=== PATIENT | female | born 1975 | race Hispanic/Latino ===

== ENCOUNTER 2025-04-24 00:53 | Emergency (ER) | payer SELFPAY ==
[~2025-04-24] VITALS: Ht 154.9 cm; Wt 81.6 kg
--- NOTE | 2025-04-24 01:24 | EKG ---
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
[2025-04-24 01:26] LABS: IMMATURE GRANULOCYTE ABSOLUTE 0.05 K/uL (0-1); NUCLEATED RED BLOOD CELLS 0.0 % (0.0-0.19); PLATELET COUNT (AUTO) 345 K/uL (130-400); RED BLOOD CELL COUNT(AUTO) 4.62 MIL/uL (4.00-5.50); RED CELL DISTRIBUTION WIDTH 13.6 % (11.0-15.5); WHITE BLOOD COUNT (AUTO) 10.6 K/uL (4.8-10.8)
[2025-04-24 01:34] LABS: CREATININE 0.8 mg/dL (0.5-1.0); GLOMERULAR FILTR. RATE CALC 89 mL/min (>90); GLUCOSE,RANDOM 132 mg/dL (70-105); SODIUM SERUM 141 mmol/L (136-145); UREA NITROGEN, BLOOD 8 mg/dL (7-18)
[2025-04-24] MEDS: 0.9%NACL 1000ML 1,000 ML IV ONE (01:34)
[2025-04-24 01:42] LABS: ALCOHOL, BLOOD < 3 mg/dL (0-10)
--- NOTE | 2025-04-24 02:40 | ERN ---
ED Note History of Present Illness Stated Complaint: SENT IN FOR EMOTIONAL DISTRESS Chief Complaint: Other Problems Time Seen by MD: 00:56 Dictation: This is a 50-year-old female who is overweight apparently has been crying since her father yesterday. Got concerned about her ongoing emotional distress and they sent her via EMS to ER for evaluation The daughter indicated that ever since her father she started complaining of chest tightness feeling like fainting and leg pains. She does have a history of arthritis but she does not know the details and patient is on Rinvoq. She saw her primary care physician who also started her on rosuvastatin. Referred her to cell repairer for for a baseline echocardiogram patient denied any diabetes or hypertension she is currently not on any medications for hypertension Patient has been crying incessantly and was complaining that she could faint. Temperature 98.1 pulse 153 respirations 20 blood pressure 148/99 with a pulse oximetry of 97%. Heart rate by the time she came to the ED was 77-80 Chronic medical problems include asthma, hypertension, hypercholesterolemia Allergies: Coded Allergies: No Known Allergies (Unverified Allergy, Unknown, 04/24/25) Past Medical History Past Medical History: Asthma, High Cholesterol, Heart Disease, Hypertension Surgical History: None Family History: Negative Social History: Negative History: Not Applicable RN Note Reviewed/Agreed w/PFSH: Yes Review of System Dictation Constitutional: Negative for fever,chills, and weight loss Eyes: Negative for injury, pain,redness, and discharge ENT: Negative for injury,pain or swelling Cardiovascular: Positive for chest pain, palpitations, denied and edema Respiratory: Positive for shortness of breath, cough, and wheezing, Abdomen/GI: Negative for abdominal pain, nausea, vomiting, diarrhea, and constipation Back: Negative for injury and pain : Negative for injury, bleeding and discharge MS/Extremity: Negative for injury and deformity Skin: Negative for rash, and discoloration Neuro: Negative for headache, weakness, numbness, tingling, and seizure Psych: Negative for suicide ideation, homicidal ideation, and hallucinations Initial Vital Sign VS Vital Signs Date Time Temp Pulse Resp B/P (MAP) Pulse Ox O2 Delivery O2 Flow Rate FiO2 04/24/25 00:56 98.1 153 20 148/99 97 0 Physical Exam Dictation General: awake, alert, NAD overweight female Head/Face: Normocephalic, atraumatic Eyes: PERRL, EOMI, vision at baseline ENT: oral cavity clear, TMs clear, no signs of infection Neck: Trachea midline, supple, no nuchal rigidity Cardiovascular: RRR, normal S1/S2, No MRGs, no JVD Respiratory: CTAB, no respiratory distress, No rales or wheezes Abdomen: Soft, non-tender, non-distended, normal bowel sounds, no guarding or rebound. Skin: Warm, dry, normal turgor, no rash MS/Extremity: Pulses equal, no cyanosis, neurovascular intact, FROM Neuro: COAx4, GCS 15, strength 5/5, CN 2-12 intact, normal cerebellar exam, normal gait, Psych: Normal behavior, mood, and affect normal Extremities-trace edema without any palpable cords, Homans sign is negative Results (Laboratory/Radiology) Laboratory/Radiology Laboratory Tests Test 04/24/25 01:17 04/24/25 02:58 White Blood Count 10.6 K/uL (4.8-10.8) Red Blood Count 4.62 MIL/uL (4.00-5.50) Hemoglobin 14.3 g/dL (12.0-16.0) Hematocrit 42.1 % (36-48) Mean Corpuscular Volume 91.1 fL (79-99) Mean Corpuscular Hemoglobin 31.0 pg (27.0-33.0) Mean Corpuscular Hemoglobin Concent 34.0 g/dL (32.0-36.0) Red Cell Distribution Width 13.6 % (11.0-15.5) Platelet Count 345 K/uL (130-400) Mean Platelet Volume 10.6 fL (7.5-10.5) H Immature Granulocyte % (Auto) 0.5 % (0-1) Neutrophils (%) (Auto) 67.7 % (40.0-77.0) Lymphocytes (%) (Auto) 22.3 % (21.0-51.0) Monocytes (%) (Auto) 7.8 % (3.0-13.0) Eosinophils (%) (Auto) 1.4 % (0.0-8.0) Basophils (%) (Auto) 0.3 % (0.0-5.0) Neutrophils # (Auto) 7.2 K/uL (1.8-7.7) Lymphocytes # (Auto) 2.4 K/uL (1.0-4.8) Monocytes # (Auto) 0.8 K/uL (0.1-1.0) Eosinophils # (Auto) 0.15 K/uL (0.00-0.70) Basophils # (Auto) 0.03 K/uL (0.00-0.20) Absolute Immature Granulocyte (auto 0.05 K/uL (0-1) Nucleated Red Blood Cells 0.0 % (0.0-0.19) Sodium Level 141 mmol/L (136-145) Potassium Level 3.4 mmol/L (3.5-5.1) L Chloride Level 106 mmol/L (101-111) Carbon Dioxide Level 28 mmol/L (21-32) Blood Urea Nitrogen 8 mg/dL (7-18) Creatinine 0.8 mg/dL (0.5-1.0) Glomerular Filtration Rate Calc 89 mL/min (>90) Random Glucose 132 mg/dL (70-105) H Total Calcium 8.6 mg/dL (8.5-10.1) Salicylates Level < 2.8 mg/dL (2.8-20.0) L Acetaminophen Level < 1 mcg/mL (10-30) L Serum Alcohol < 3 mg/dL (0-10) Urine Color LIGHT-YELLOW (YELLOW) Urine Appearance CLOUDY (CLEAR) H Urine pH 6.5 (5.0-8.0) Urine Specific [place] 1.014 (1.001-1.031) Urine Protein NEGATIVE mg/dL (NEGATIVE) Urine Glucose (UA) NEGATIVE mg/dL (NEGATIVE) Urine Ketones NEGATIVE mg/dL (NEGATIVE) Urine Occult Blood NEGATIVE (NEGATIVE) Urine Nitrate NEGATIVE (NEGATIVE) Urine Bilirubin NEGATIVE mg/dL (NEGATIVE) Urine Urobilinogen 2.0 mg/dL (0.2-1.0) H Urine Leukocyte Esterase NEGATIVE Ruf[place]/uL Urine RBC 2-5 /HPF (0-1) H Urine WBC 0-1 /HPF (0-1) Urine Squamous Epithelial Cells MANY /HPF (0-2) Urine Bacteria RARE /HPF (None Seen) Urine Opiates Screen NEGATIVE (NEGATIVE) Urine Barbiturates Screen NEGATIVE (NEGATIVE) Urine Phencyclidine Screen NEGATIVE (NEGATIVE) Urine Amphetamines Screen NEGATIVE (NEGATIVE) Urine Benzodiazepines Screen NEGATIVE (NEGATIVE) Urine Cocaine Screen NEGATIVE (NEGATIVE) Urine Marijuana (THC) Screen NEGATIVE (NEGATIVE) Labs Reviewed?: Yes EKG Comment: 12 lead EKG done on 04/24/2025 at 1:21 a.m. showed a heart rate of 86, OK interval 129, QRS 75, QT/QTC 385/460 Impression normal sinus rhythm with nonspecific changes poor progression of the R-waves. Overall slightly low voltage. EKG rhythm strip also shows a normal sinus rhythm with no acute STT wave emmie nges. Interpreted by ER MD Dr. Glass ED Course ED Course Orders Procedure Category Date Status Time Cbc With Differential LAB 04/24/25 Complete 01:07 Alcohol, Blood LAB 04/24/25 Complete 01:07 Salicylate LAB 04/24/25 Complete 01:07 Acetaminophen LAB 04/24/25 Complete 01:07 Urinalysis Profile LAB 04/24/25 Complete 01:07 Basic Metabolic Panel LAB 04/24/25 Complete 01:07 12 Lead Ekg Tracing- EKG 04/24/25 Complete Technical 01:07 0.9%Nacl 1000ml (Ns PHA 04/24/25 In Process 1000ml) 01:30 Drug Screen Urine LAB 04/24/25 Complete 01:07 Ketorolac PHA 04/24/25 Complete Tromethamine 30mg/Ml 02:30 Alprazolam 0.5mg PHA 04/24/25 Complete (Xanax 0.5mg) 03:00 Ondansetron 4mg Inj PHA 04/24/25 Complete (Zofran 4mg Inj) 03:30 Current Medications Medications (Trade) Dose Ordered Sig/Julio Route PRN Reason Start Time Stop Time Status Last Admin Dose Admin Alprazolam (XANax 0.5MG) 0.5 mg ONCE ONCE PO 04/24/25 03:00 04/24/25 03:01 DC 04/24/25 03:08 Ketorolac Tromethamine (toRADol) 30 mg ONCE ONCE IVP 04/24/25 02:30 04/24/25 02:33 DC 04/24/25 02:48 Ondansetron HCl (zoFRAN 4MG INJ) 4 mg ONCE ONCE IVP 04/24/25 03:30 04/24/25 03:31 DC 04/24/25 03:10 Sodium Chloride 1,000 ml @ 125 mls/hr ONCE ONCE IV 04/24/25 01:30 04/24/25 09:29 04/24/25 01:34 Vital Signs Date Time Temp Pulse Resp B/P (MAP) Pulse Ox O2 Delivery O2 Flow Rate FiO2 04/24/25 00:56 98.1 153 20 148/99 97 0 HEART Score Response (Comments) Value History: Low suspicion (0) 0 EKG: Normal 0 Age: 45-65yrs (+1) 1 Risk Factors: 1-2 risk factors (+1) 1 Initial Troponin: Normal limit (0) 0 HEART Score Risk: Low Risk for MACE (1-3) Total 2 Medical Decision Making MDM Differential diagnosis: Acute grief reaction, anxiety depression with stressors in life, alcohol intoxication/withdrawal, recreational drug abuse worsening this psychiatric disorder This is a 50-year-old female who is overweight apparently has been crying since her father yesterday. Got concerned about her ongoing emotional distress and they sent her via EMS to ER for evaluation The daughter indicated that ever since her father she started complaining of chest tightness feeling like fainting and leg pains. She does have a history of arthritis but she does not know the details and patient is on Rinvoq. She saw her primary care physician who also started her on rosuvastatin. Referred her to cell repairer for for a baseline echocardiogram patient denied any diabetes or hypertension she is currently not on any medications for hypertension Patient has been crying incessantly and was complaining that she could faint. Temperature 98.1 pulse 153 respirations 20 blood pressure 148/99 with a pulse oximetry of 97%. Heart rate by the time she came to the ED was 77-80 Chronic medical problems include asthma, hypertension, hypercholesterolemia 4:00 a.m. labs reviewed CBC is with a normal limits BNP 7 showed a potassium of 3.4 UDS negative urinalysis is unremarkable. Twelve lead EKGs normal I updated the patient and her daughter on all the available tests and gave her gentle hydration as well as an anxiolytic. Patient felt extremely relaxed and relieved and she would like to be discharged to home Rationale: Tests considered and ordered secondary to shared decision making include: Labs, urinalysis, UDS, EKG Previous outside records reviewed: Old ER visits. Risk of complication and/or morbidity or mortality of patient management: None Medications-Per medication reconciliation Need for hospitalization: Patient does not meet criteria for hospitalization. Need for emergency major/minor surgery: No There are no social concerns with this patient. Prescription drug management Prescriptions will include symptomatic care Patient's prior external medical records from other ER visits were reviewed by me as indicated. Prior testing and results from previous visits were reviewed. Prior tests were taken into account with medical decision making and resource utilization, independent historian/historians were used to obtain complete medical history. I independently interpreted the test that were performed, results were reviewed by me and considered findings on radiology if ordered. Medical management and examination interpretation discussions were had by me with other qualified healthcare professionals as indicated for the patient's care. Rationale: Tests considered and ordered secondary to shared decision making include: Labs, EKG and chest x-ray Previous outside records reviewed: Old ER visits. Risk of complication and/or morbidity or mortality of patient management: None Medications-Per medication reconciliation Need for hospitalization: Patient does not meet criteria for hospitalization. Need for emergency major/minor surgery: No There are no social concerns with this patient. Prescription drug management Prescriptions will include symptomatic care Patient's prior external medical records from other ER visits were reviewed by me as indicated. Prior testing and results from previous visits were reviewed. Prior tests were taken into account with medical decision making and resource utilization, independent historian/historians were used to obtain complete medical history. I independently interpreted the test that were performed, results were reviewed by me and considered findings on radiology if ordered. Medical management and examination interpretation discussions were had by me with other qualified healthcare professionals as indicated for the patient's care. Problem List Problem List: (1) Grief reaction (2) Stress reaction, acute, predominant emotional DX & DISP Disposition: Discharge Departure Impression: Primary Impression: Grief reaction Additional Impression: Stress reaction, acute, predominant emotional Condition: Stable Additional Instructions: Patient and the caregiver have been informed of all the diagnostic tests and the imaging conducted during the today's visit to the emergency room and has verbalized understanding of the results I have personally reviewed and interpreted all diagnostic exams performed here in the ER today as well as the vital signs documented by the nursing staff. The patient is now being dischar ged to home and should follow up with the primary care physician or the specialist as directed by the ER staff. 1 schedule a follow-up appointment; call your primary care physician's office on the next business day to set up a follow-up appointment. 2. Monitor symptoms; if your symptoms worsen return to the emergency room immediately. 3. Return to school/work; you may return to work or school in 2 days or as directed by your primary care physician. 4. Manage pain and fever; take [id number] Tylenol or Advil for pain or fever if there are no contraindications follow the recommended dosage instructions. 5. Stay well hydrated; drink plenty of oral fluids to stay hydrated. 6. Take prescribed medications; take any medications prescribed in the emergency room as directed bring them with you to your primary care physician visit for possible adjustments. 7. Complete medication course; finish the entire course of medication as prescribed even if you start feeling better. Do not have any leftover medication unless instructed otherwise. 8. Follow up on culture results; if a urine culture and wound culture was ordered in the emergency room please follow-up with your primary care physician within 2-3 days to review the culture and sensitivity report for appropriate antibiotic therapy adjustments. 9. Resume home medications; you may resume taking your home medications unless instructed otherwise. Patient has a primary physician follow up. And asked them to discuss maybe a short course of antidepressants and support therapy for grief reaction SYLVIA GLASS MD Apr 24, 2025 02:40
[2025-04-24 03:16] LABS: ADD UA MICROSCOPIC YES; APPEARANCE,URINE CLOUDY (CLEAR); GLUCOSE, URINE (UA) NEGATIVE (NEGATIVE); LEUKOCYTE ESTERASE ,URINE NEGATIVE Leu/uL (NEGATIVE); NITRATE,URINE NEGATIVE (NEGATIVE); OCCULT BLOOD,URINE NEGATIVE (NEGATIVE)
[2025-04-24 03:19] LABS: SQUAMOUS EPITHELIAL CELL,UR MANY /HPF (0-2)
[2025-04-24 03:22] LABS: AMPHET/METH SCREEN,URINE NEGATIVE (NEGATIVE); BARBITURATE SCREEN, URINE NEGATIVE (NEGATIVE); CANNABINOID SCREEN,URINE NEGATIVE (NEGATIVE); COCAINE SCREEN,URINE NEGATIVE (NEGATIVE)
[2025-04-24 04:44] VITALS: BP 136/88; PULSE 88; RESP 16; TEMP 98.1; O2SAT 98
== END 2025-04-24 04:46 | disposition home or self-care (01) ==
LOC: EDH 00:53
DX: F43.20 Adjustment disorder, unspecified (principal); F43.9 Reaction to severe stress, unspecified; E78.00 Pure hypercholesterolemia, unspecified; I11.9 Hypertensive heart disease without heart failure; J45.909 Unspecified asthma, uncomplicated
CPT/HCPCS: 99284; 96374; 96361; 96375; 80048; 80305; 85025; 36415; 93005; 81001; J1885; G0481; J7030; J2405